=== PATIENT | female | born 1950 | race Asian ===

== ENCOUNTER 2019-12-27 08:51 | Day surgery (SDC) | payer OTHER ==
[2019-12-26 09:15] VITALS: BMI 23.0
[2019-12-27 09:37] VITALS: TEMP 98.5
[2019-12-27 12:12] VITALS: BP 120/70; PULSE 65
== END 2019-12-27 12:12 | disposition home or self-care (01) ==
LOC: JASU-ENDO 08:51
PROVIDERS: ATTEND Internal Medicine Gastroenterology
PROC: 0DJD8ZZ Inspection of Lower Intestinal Tract, Via Natural or Artificial Opening Endoscopic (ICD-10-PCS; principal; 2019-12-27 10:45)
DX: R19.5 Other fecal abnormalities (principal); K57.30 Diverticulosis of large intestine without perforation or abscess without bleeding; I10 Essential (primary) hypertension; E78.00 Pure hypercholesterolemia, unspecified; F41.9 Anxiety disorder, unspecified

== ENCOUNTER 2022-12-22 22:39 | Emergency (ER) | payer OTHER ==
[2022-12-22] MEDS ORDERED: ONDANSETRON *ODT* 4 MG TABLET SL ONE (22:48)
[2022-12-22] MEDS ORDERED: ACETAMINOPHEN 500 MG TABLET (FP) PO ONE (22:48)
[2022-12-22 22:57] VITALS: BMI 24.2
[2022-12-22] MEDS ORDERED: ONDANSETRON *ODT* 4 MG TABLET ONE (22:57)
[2022-12-22] MEDS ORDERED: ACETAMINOPHEN 500 MG TABLET (FP) ONE (22:57)
[2022-12-22] MEDS ORDERED: MECLIZINE HCL 25 MG TABLET (FP) PO ONE (23:02)
[2022-12-22] MEDS ORDERED: MECLIZINE HCL 25 MG TABLET (FP) ONE (23:02)
[2022-12-22 23:40] VITALS: BP 109/71; PULSE 67; RESP 16; TEMP 98.6
== END 2022-12-22 23:44 | disposition home or self-care (01) ==
LOC: FER 22:39
DX: R42 Dizziness and giddiness (principal)
CPT/HCPCS: 99283-25; Q0162

== ENCOUNTER 2024-09-20 17:33 | Inpatient (IN) | payer OTHER ==
[2024-09-20 18:49] LABS: BASO % 0.5 % (0-2.0); EOS % 1.2 % (0-4.5); HEMATOCRIT 38.8 % (32.4-45.2); LYMPH % 21.5 % (8-40); MCH 32.6 pg (25.7-33.7); MCHC 33.5 g/dl (32.0-36.0); MEAN CELL VOLUME 97.1 fl (80-96); MEAN PLT VOLUME 6.9 fl (7.5-11.1); MONO % 8.1 % (3.8-10.2); NEUT % 68.7 % (42.8-82.8); PLATELET COUNT 228 10^3/uL (134-434); RBC 3.99 M/mm3 (3.60-5.2); RDW 13.5 % (11.6-15.6); WHITE BLOOD COUNT 4.4 K/mm3 (4.0-10.0)
[2024-09-20 18:55] LABS: INR 0.86 (0.83-1.09); PROTHROMBIN TIME (PATIENT) 9.9 SEC (9.7-13.0)
[2024-09-20 18:58] LABS: ACTIVATED PTT 34.9 SECONDS (25.2-36.5)
[2024-09-20 19:25] LABS: POTASSIUM 4.3 mmol/L (3.5-5.1)
[2024-09-20 19:26] LABS: CALCIUM 9.9 mg/dL (8.5-10.1)
[2024-09-20 19:27] LABS: ALBUMIN 3.8 g/dl (3.4-5.0); BLOOD UREA NITROGEN 14.2 mg/dL (7-18)
[2024-09-20 19:28] LABS: MAGNESIUM 2.3 mg/dL (1.8-2.4)
[2024-09-20 19:32] LABS: BILIRUBIN,TOTAL 0.4 mg/dL (0.2-1)
[2024-09-20 19:33] LABS: TOT PROT 7.4 g/dl (6.4-8.2)
[2024-09-20] MEDS ORDERED: ASPIRIN 81 MG CHEWABLE TABLETS ONE (21:57)
[2024-09-20] MEDS ORDERED: HEPARIN NA (PORCINE) 5,000 UNITS/ML 1ML VIAL ONE (21:57)
[2024-09-20] MEDS: ASPIRIN 81 MG CHEWABLE TABLETS PO ONE (21:58)
[2024-09-20] MEDS: HEPARIN NA (PORCINE) 5,000 UNITS/ML 1ML VIAL IVPUSH ONE (21:59)
[2024-09-20] MEDS ORDERED: ALPRAZolam 0.25 MG TABLET ONE (23:57)
[2024-09-21] MEDS: ALPRAZolam 0.25 MG TABLET PO ONE (00:02)
[2024-09-21] MEDS ORDERED: HEPARIN NA (PORCINE) 5,000 UNITS/ML 1ML VIAL IVPUSH PRN ×2 (00:29)
[2024-09-21] MEDS: HEPARIN SOD,PORK IN 0.45% NACL 25,000 UNIT/500 ML INFUS.BAG IVPB SCH (00:35)
[2024-09-21] MEDS ORDERED: HEPARIN INFUSION - 25,000 UNITS/500 ML INFUS.BAG IVPB ONE (00:41)
[2024-09-21] MEDS: HEPARIN INFUSION - 25,000 UNITS/500 ML INFUS.BAG IVPB SCH (00:56)
[2024-09-21 04:22] VITALS: BMI 24.4
[2024-09-21 08:26] LABS: HEMOGLOBIN 12.5 GM/dL (10.7-15.3); MCH 32.8 pg (25.7-33.7); MCHC 33.7 g/dl (32.0-36.0); MEAN CELL VOLUME 97.5 fl (80-96); MEAN PLT VOLUME 7.7 fl (7.5-11.1); PLATELET COUNT 215 10^3/uL (134-434); RDW 13.4 % (11.6-15.6); WHITE BLOOD COUNT 4.2 K/mm3 (4.0-10.0)
[2024-09-21] MEDS: ASPIRIN 81 MG CHEWABLE TABLETS PO SCH (09:19)
[2024-09-21] MEDS: HYDROCHLOROTHIAZIDE 12.5 MG CAPSULE (FP) PO SCH (09:19)
[2024-09-21 09:20] LABS: POTASSIUM 3.2 mmol/L (3.5-5.1)
[2024-09-21 09:25] LABS: ALBUMIN 3.3 g/dl (3.4-5.0); BLOOD UREA NITROGEN 10.8 mg/dL (7-18); CALCIUM 9.1 mg/dL (8.5-10.1); MAGNESIUM 2.4 mg/dL (1.8-2.4)
[2024-09-21 09:27] LABS: CREATININE 0.9 mg/dL (0.55-1.3); PHOSPHOROUS 3.1 mg/dL (2.5-4.9)
[2024-09-21 09:30] LABS: BILIRUBIN,TOTAL 0.6 mg/dL (0.2-1); TOT PROT 6.3 g/dl (6.4-8.2)
[2024-09-21] MEDS ORDERED: PAROXETINE HCL 12.5 MG PO SCH (10:00)
[2024-09-21] MEDS: ATORVASTATIN CA 20 MG TABLET (FP) PO SCH (21:28)
[2024-09-21] MEDS ORDERED: ATORVASTATIN CA 20 MG TABLET (FP) PO SCH (22:00)
[2024-09-22 07:06] LABS: HEMATOCRIT 38.3 % (32.4-45.2); HEMOGLOBIN 12.7 GM/dL (10.7-15.3); MCH 32.4 pg (25.7-33.7); MCHC 33.1 g/dl (32.0-36.0); MEAN CELL VOLUME 97.9 fl (80-96); MEAN PLT VOLUME 7.2 fl (7.5-11.1); PLATELET COUNT 239 10^3/uL (134-434); RBC 3.92 M/mm3 (3.60-5.2); RDW 13.6 % (11.6-15.6); WHITE BLOOD COUNT 4.3 K/mm3 (4.0-10.0)
[2024-09-22 07:25] LABS: POTASSIUM 3.7 mmol/L (3.5-5.1)
[2024-09-22 07:39] LABS: CALCIUM 9.1 mg/dL (8.5-10.1)
[2024-09-22 07:40] LABS: BLOOD UREA NITROGEN 16.7 mg/dL (7-18); MAGNESIUM 2.3 mg/dL (1.8-2.4)
[2024-09-22 07:43] LABS: CREATININE 0.8 mg/dL (0.55-1.3); PHOSPHOROUS 3.1 mg/dL (2.5-4.9)
[2024-09-22] MEDS ORDERED: REGADENOSON 0.4 MG/5 ML PRE-FILLED SYRINGE IVPUSH ONE (10:17)
[2024-09-22 10:18] VITALS: BP 132/71; PULSE 63; RESP 16; TEMP 98.2
[2024-09-22] MEDS: PARoxetine HCL 10 MG TABLET PO SCH (12:31)
[2024-09-22] MEDS: ENOXAPARIN NA (PORCINE) 40 MG/0.4 ML DISP.SYRIN SQ SCH (12:32)
[2024-09-22] MEDS: REGADENOSON 0.4 MG/5 ML PRE-FILLED SYRINGE IVPUSH ONE (13:28)
== END 2024-09-22 13:21 | disposition home or self-care (01) | DRG 305 ==
LOC: JER 17:33 → JERBED 20:51 → J4W 09-21 03:06
PROVIDERS: ADMIT Internal Medicine; ATTEND Internal Medicine
DX: I16.0 Hypertensive urgency (principal); I24.89 Other forms of acute ischemic heart disease; E78.5 Hyperlipidemia, unspecified; F41.9 Anxiety disorder, unspecified; I10 Essential (primary) hypertension
CPT/HCPCS: 36415; 71045-TC-FY; 78452-TC; 80048; 80053; 80061; 82550; 83735; 84100; 84443; 84484; 85025; 85027; 85610; 85730; 93005; 93010; 93017; 93306-TC; 99285-25; A9502; J1644; J2785